=== PATIENT | female | born 1975 | race African-American/Black ===

== ENCOUNTER 2020-05-08 10:46 | Emergency (ER) | payer MEDICAID ==
[~2020-05-08] VITALS: Ht 167.6 cm; Wt 86.0 kg
[~2020-05-08 10:46] MED LIST: ALBU2.5V13 IH
[2020-05-08] MEDS ORDERED: IBUPROFEN 600MG TABLET PO ONE (11:30)
[2020-05-08 12:56] VITALS: BP 139/83
== END 2020-05-08 12:56 | disposition home or self-care (01) ==
LOC: ER 10:46
DX: S92.514A Nondisplaced fracture of proximal phalanx of right lesser toe(s), initial encounter for closed fracture (principal); J45.909 Unspecified asthma, uncomplicated; Z98.890 Other specified postprocedural states; Z88.0 Allergy status to penicillin; W22.01XA Walked into wall, initial encounter; Y93.89 Activity, other specified; Y92.018 Other place in single-family (private) house as the place of occurrence of the external cause
CPT/HCPCS: 73660; 99283; Z7610

== ENCOUNTER 2022-07-13 15:56 | Emergency (ER) | payer MEDICAID, OTHER ==
[~2022-07-13] VITALS: Ht 167.6 cm; Wt 80.0 kg
[2022-07-13] MEDS ORDERED: IBUPROFEN 600MG TABLET PO ONE (21:00)
[2022-07-13 21:39] VITALS: BP 104/65
== END 2022-07-13 21:45 | disposition home or self-care (01) ==
LOC: ER 16:17
DX: M79.604 Pain in right leg (principal); J45.909 Unspecified asthma, uncomplicated; I10 Essential (primary) hypertension; F17.290 Nicotine dependence, other tobacco product, uncomplicated; Z98.890 Other specified postprocedural states
CPT/HCPCS: 73590; 81025; 99283